=== PATIENT | male | born 1970 | race Caucasian/White ===

== ENCOUNTER 2020-06-09 14:18 | Emergency (ER) | payer OTHER ==
[~2020-06-09 14:18] MED LIST: AMOXICILLIN500 MG PO; CLARITIN10 MG PO; COLESTID 1GM TAB1 GM PO; COZAAR100 MG PO; CREON DR 24,001 EACH PO; DICLOFENAC SODI75 MG PO; FENOFIBRATE145 MG PO; HCTZ25 MG PO; IBUPROFEN400 MG PO; LIPITOR20 M1 PO; MEDROL 4MG DOSEP4 MG PO; METFORMIN HCL500 MG PO; NAPROSYN500 MG PO; NAPROXEN500 MG PO; PREDNISONE 20MG20 MG PO; PROAIR DIGIHAL90 MCG PO; PROCTOZONE-HC 230 GM TOP; ULTRAM50 MG PO
[2020-06-09] MEDS ORDERED: NAPROXEN500 MG PO (17:56)
== END 2020-06-09 15:40 | disposition home or self-care (01) ==
LOC: FER 14:18
DX: M25.571 Pain in right ankle and joints of right foot (principal); I10 Essential (primary) hypertension; E11.9 Type 2 diabetes mellitus without complications; E78.5 Hyperlipidemia, unspecified; F17.220 Nicotine dependence, chewing tobacco, uncomplicated; Z87.828 Personal history of other (healed) physical injury and trauma
CPT/HCPCS: 73610; J1885